=== PATIENT | male | born 1980 | race African-American/Black ===

== ENCOUNTER 2016-11-23 23:16 | Observation (INO) ==
[2016-11-23] MEDS ORDERED: 0.9 % Sodium Chloride 1,000 ML IVC ONE (23:18)
--- NOTE | 2016-11-23 23:34 | Emergency Department Note ---
Disposition Clinical Impression: Alcohol intoxication Qualifiers: Complication of substance-induced condition: with unspecified complication Qualified Code(s): F10.129 - Alcohol abuse with intoxication, unspecified Disposition: Admitted As Inpatient Condition: Fair Time of Disposition: 02:58 Alcohol HPI - General Chief Complaint: ED Alcohol Abuse Stated Complaint: intoxication Time Seen by Provider: 11/23/16 23:17 Source: patient, EMS Limitations: no limitations Nursing Notes Reviewed: Yes Vital Signs Reviewed: Yes - History of Present Illness HPI Narrative: 36-year-old male arrives by squad with reported alcohol intoxication. Squad reports patient was found intoxicated on [address] they were able to talk patient at the time. They noticed an abrasion on his head. They have discussed patient with a bystander who is moderately patient, and the bystander had reported patient does not drink, but does not take drugs. - Related Data Allergies Allergy/AdvReac Type Severity Reaction Status Date / Time Unable to Assess Allergy Unverified 11/23/16 23:36 Limitations: ROS unobtainable due to patients medical condition Past Medical History - Past Medical History Medical history: Reports: other - Social History Smoking Status: Unknown if ever smoked Alcohol use: Reports: heavy, recent Physical Exam - General Limitations: altered mental status General appearance: alert, appears intoxicated - Head Head exam: other (Scalp abrasion) - Eye Eye exam: Present: normal appearance, PERRL, EOMI - ENT ENT exam: normal exam, mucous membranes moist - Neck Neck exam: Present: full ROM - Chest Chest inspection: Present: normal inspection, symmetric chest wall rise - Respiratory Respiratory exam: Present: normal lung sounds bilaterally. Absent: respiratory distress - Cardiovascular Cardiovascular exam: Present: regular rate, normal rhythm - Abdominal Exam Abdominal exam: Present: soft, Non-Tender - Extremities Exam Extremities exam: Present: normal inspection, full ROM, normal capillary refill. Absent: calf tenderness - Back Exam Back exam: Present: normal inspection, full ROM - Skin Skin exam: Present: warm, dry, intact, normal color. Absent: rash, cyanosis, diaphoresis Course Course Narrative: 36-year-old male who arrives via squad with reported alcohol intoxication. History provided by [employer]. She reported to be drinking, was drunk. Not been able to get up. Patient's vitals within normal limits. Patient is not arousable scalp abrasion on left side. Initial workup ordered. Discussed with Dr. Hinojosa, who agreed with CT of head and neck. Vital Signs Temperature 97.9 F 11/23/16 23:17 Pulse Rate 76 11/23/16 23:17 Respiratory Rate 18 11/23/16 23:17 Blood Pressure 108/64 11/23/16 23:17 O2 Sat by Pulse Oximetry 95 11/23/16 23:17 Temperature 97.9 F 11/23/16 23:17 Pulse Rate 76 11/23/16 23:17 Respiratory Rate 18 11/24/16 01:43 Blood Pressure 118/89 11/24/16 01:43 O2 Sat by Pulse Oximetry 95 11/23/16 23:17 Oxygen Delivery Oxygen Delivery Nasal Cannula Alcohol - MDM Narrative Medical decision making narrative: 28-year-old male presents with reported alcohol intoxication. He arrives via squad. He was talking at the scene. No reported involvement of any drug use other than alcohol. No reported injury, however patient did have a scalp abrasion. Workup showed ethanol level 387. CT head and neck negative. Patient has been unarousable to pain.Patient has been managing his own airway , vital stable. Did discuss patient with Dr. Hinojosa who agreed with workup evaluation and for admission. Patient was except for the hospitalists for ethanol intoxication. - Lab Data Lab results reviewed: Yes I reviewed the patient's lab results. Result diagrams: 11/23/16 23:30 11/23/16 23:30 Lab Results 11/23/16 11/23/16 11/23/16 Range/Units 23:30 23:30 23:30 WBC 4.6 (4.3-11.1) K/mcL RBC 4.17 L (4.19-5.50) M/mcL Hgb 13.5 (12.9-16.9) g/dL Hct 40.7 (37.5-50.1) % MCV 97.6 (83.0-100.0) fL MCH 32.4 (28.0-33.3) pg MCHC 33.2 (31.6-35.5) g/dL RDW 15.0 H (11.5-14.5) % Plt Count 255 (140-400) K/mcL MPV 9.1 L (9.4-12.4) fL Immature Gran % 0.2 (0-4) % Seg Neutrophils % 41.5 % Lymphocytes % 45.0 % Monocytes % 12.3 % Eosinophils % 0.6 % Basophils % 0.4 % Neutrophils # 1.9 (1.6-8.9) K/mcL Lymphocytes # 2.1 (0.6-4.6) K/mcL Monocytes # 0.6 (0.0-1.3) K/mcL Eosinophils # 0.0 (0.0-0.6) K/mcL Basophils # 0.0 (0.0-0.2) K/mcL Sodium 144 (136-145) mEq/L Potassium 3.2 L (3.5-4.5) mEq/L Chloride 112 H (98-109) mEq/L Carbon Dioxide 25 (19-29) mEq/L BUN 5 L (8-26) mg/dL Creatinine 0.85 (0.72-1.25) mg/dL Est GFR ( Amer) > 60 (> 60) Est GFR (Non-Af Amer) > 60 (> 60) BUN/Creatinine Ratio 6 (6-26) Glucose 100 H (70-99) mg/dL Calculated Osmolality 295 (280-300) Calcium 8.1 L (8.6-10.8) mg/dL Total Bilirubin 0.3 (0.2-1.2) mg/dL Direct Bilirubin 0.1 (0.0-0.5) mg/dL Indirect Bilirubin 0.2 (0.0-1.2) mg/dL AST 81 H (5-34) Units/L ALT 143 H (0-55) Units/L Alkaline Phosphatase 41 (38-126) Units/L Ammonia 35 (18-72) mcmol/L Troponin I (0-0.03) ng/mL Serum Total Protein 7.0 (6.0-8.3) g/dL Albumin 4.1 (3.5-5.0) g/dL Globulin 2.9 (2.4-3.5) g/dL Albumin/Globulin Ratio 1.4 (1.1-2.2) Urine Color (Yellow) Urine Clarity (Clear) Urine pH (5.0-8.0) pH Units Ur Specific [place] (1.010-1.025) Urine Protein (Neg-Trace) mg/dL Urine Glucose (UA) (Normal) mg/dL Urine Ketones (Negative) mg/dL Urine Blood (Negative) Urine Nitrite (Negative) Urine Bilirubin (Negative) Urine Urobilinogen (Normal) mg/dL Ur Leukocyte Esterase (Negative) Urine Microscopic RBC (0-3) per hpf Urine Microscopic WBC (0-3) per hpf Urine Bacteria (None-Few) per hpf Ur Culture Indicated? (NO) Urine Opiates Screen (Cgzyje=145) ng/mL Ur Barbiturates Screen (Dsqwhb=333) ng/mL Ur Phencyclidine Scrn (Cutoff=25) ng/mL Ur Amphetamines Screen (Qyixfx=9649) ng/mL U Benzodiazepines Scrn (Kqetwb=623) ng/mL Urine Cocaine Screen (Cutoff= 300) ng/mL U Marijuana (THC) Screen (Cutoff = 50) ng/mL Ethyl Alcohol 387 H (0-10) mg/dL 11/23/16 11/23/16 11/23/16 Range/Units 23:30 23:58 23:58 WBC (4.3-11.1) K/mcL RBC (4.19-5.50) M/mcL Hgb (12.9-16.9) g/dL Hct (37.5-50.1) % MCV (83.0-100.0) fL MCH (28.0-33.3) pg MCHC (31.6-35.5) g/dL RDW (11.5-14.5) % Plt Count (140-400) K/mcL MPV (9.4-12.4) fL Immature Gran % (0-4) % Seg Neutrophils % % Lymphocytes % % Monocytes % % Eosinophils % % Basophils % % Neutrophils # (1.6-8.9) K/mcL Lymphocytes # (0.6-4.6) K/mcL Monocytes # (0.0-1.3) K/mcL Eosinophils # (0.0-0.6) K/mcL Basophils # (0.0-0.2) K/mcL Sodium (136-145) mEq/L Potassium (3.5-4.5) mEq/L Chloride (98-109) mEq/L Carbon Dioxide (19-29) mEq/L BUN (8-26) mg/dL Creatinine (0.72-1.25) mg/dL Est GFR ( Amer) (> 60) Est GFR (Non-Af Amer) (> 60) BUN/Creatinine Ratio (6-26) Glucose (70-99) mg/dL Calculated Osmolality (280-300) Calcium (8.6-10.8) mg/dL Total Bilirubin (0.2-1.2) mg/dL Direct Bilirubin (0.0-0.5) mg/dL Indirect Bilirubin (0.0-1.2) mg/dL AST (5-34) Units/L ALT (0-55) Units/L Alkaline Phosphatase (38-126) Units/L Ammonia (18-72) mcmol/L Troponin I 0.01 (0-0.03) ng/mL Serum Total Protein (6.0-8.3) g/dL Albumin (3.5-5.0) g/dL Globulin (2.4-3.5) g/dL Albumin/Globulin Ratio (1.1-2.2) Urine Color Yellow (Yellow) Urine Clarity Clear (Clear) Urine pH 5.0 (5.0-8.0) pH Units Ur Specific [place] 1.010 (1.010-1.025) Urine Protein Negative (Neg-Trace) mg/dL Urine Glucose (UA) Normal (Normal) mg/dL Urine Ketones Negative (Negative) mg/dL Urine Blood Trace-intact H (Negative) Urine Nitrite Negative (Negative) Urine Bilirubin Negative (Negative) Urine Urobilinogen Normal (Normal) mg/dL Ur Leukocyte Esterase Negative (Negative) Urine Microscopic RBC 0-3 (0-3) per hpf Urine Microscopic WBC 0-3 (0-3) per hpf Urine Bacteria Few (None-Few) per hpf Ur Culture Indicated? NO (NO) Urine Opiates Screen Negative (Mwdqpl=701) ng/mL Ur Barbiturates Screen Negative (Rrefmv=509) ng/mL Ur Phencyclidine Scrn Negative (Cutoff=25) ng/mL Ur Amphetamines Screen Negative (Fquxaa=8046) ng/mL U Benzodiazepines Scrn Negative (Xltyxz=805) ng/mL Urine Cocaine Screen Negative (Cutoff= 300) ng/mL U Marijuana (THC) Screen Positive H (Cutoff = 50) ng/mL Ethyl Alcohol (0-10) mg/dL - Radiology Data Radiology results reviewed: Yes I reviewed the patient's radiology results.
[2016-11-23 23:39] LABS: Basophils % 0.4 %; Eosinophils % 0.6 %; Hematocrit 40.7 % (37.5-50.1); Hemoglobin 13.5 g/dL (12.9-16.9); Immature Granulocytes % 0.2 % (0-4); Lymphocytes # 2.1 K/mcL (0.6-4.6); Mean Corpuscular HGB Conc 33.2 g/dL (31.6-35.5); Mean Corpuscular Hemoglobin 32.4 pg (28.0-33.3); Mean Corpuscular Volume 97.6 fL (83.0-100.0); Mean Platelet Volume 9.1 fL (9.4-12.4); Monocytes # 0.6 K/mcL (0.0-1.3); Monocytes % 12.3 %; Neutrophils # 1.9 K/mcL (1.6-8.9); Platelet Count 255 K/mcL (140-400); Red Blood Count 4.17 M/mcL (4.19-5.50); Segmented Neutrophils % 41.5 %
--- NOTE | 2016-11-23 23:46 | Emergency Department Note ---
START Narrative - START START: I examined this patient and my medical decision-making was reviewed with the SPORTS TEAM MANAGER/PA/Advanced Practice Nurse/Resident Physician. I agree with the documented findings, disposition and treatment plan as described except to the extent set forth below. ED attending note: Patient seen with physician anesthesiology physician assistant Wyatt Hand. Please see a copy of his note for details of the H&P, evaluation, management and disposition of this patient. We independently had [id number] contact with the patient Briefly: A 46-year-old male by EMS brought in for "intoxication." Bystander noted that the patient who does have a history of alcohol use and abuse was intoxicated. No other history of drugs per EMS and statedBY bystander. Patient is somnolent but arousable maintaining airway, GCS 14. Patient getting an Accu-Chek, CT scan of the head and neck because was abrasion on the scalp. No other external signs of trauma. Afebrile with stable vitals. Getting IV fluids and screening labs and will be observed. Providing 45 minutes of critical care services for this patient. Disposition pending.
[2016-11-23 23:54] LABS: Alanine Aminotransferase 143 Units/L (0-55); Albumin 4.1 g/dL (3.5-5.0); Albumin/Globulin Ratio 1.4 (1.1-2.2); Alkaline Phosphatase 41 Units/L (38-126); Aspartate Amino Transferase 81 Units/L (5-34); Bilirubin,Direct 0.1 mg/dL (0.0-0.5); Bilirubin,Indirect 0.2 mg/dL (0.0-1.2); Bilirubin,Total 0.3 mg/dL (0.2-1.2); Calcium 8.1 mg/dL (8.6-10.8); Carbon Dioxide 25 mEq/L (19-29); Chloride 112 mEq/L (98-109); Globulin 2.9 g/dL (2.4-3.5); Glucose 100 mg/dL (70-99); Osmolality,Calculated 295 (280-300); Potassium 3.2 mEq/L (3.5-4.5); Sodium 144 mEq/L (136-145); eGFR For African Americans > 60 (> 60); eGFR For Non-African Americans > 60 (> 60)
[2016-11-24 00:12] LABS: BUN/Creatinine Ratio 6 (6-26); Blood Urea Nitrogen 5 mg/dL (8-26)
[2016-11-24 00:23] LABS: Bilirubin,Urine Negative (Negative); Blood,Urine Trace-intact (Negative); Clarity,Urine Clear (Clear); Color,Urine Yellow (Yellow); Glucose,Urine (UA) Normal (Normal); Ketones,Urine Negative (Negative); Leukocyte Esterase,Urine Negative (Negative); Nitrite,Urine Negative (Negative); Protein,Urine Negative (Neg-Trace); Urobilinogen,Urine Normal (Normal)
[2016-11-24 00:26] LABS: Ethanol 387 mg/dL (0-10)
[2016-11-24 00:30] LABS: Amphetamine Screen,Urine Negative ng/mL (Cutoff=1000); Barbiturate Screen,Urine Negative ng/mL (Cutoff=200); Benzodiazepines Screen,Urine Negative ng/mL (Cutoff=200); Cannabinoid Screen,Urine Positive ng/mL (Cutoff = 50); Cocaine Screen,Urine Negative ng/mL (Cutoff= 300); Opiate Screen,Urine Negative ng/mL (Cutoff=300); Phencyclidine Screen,Urine Negative ng/mL (Cutoff=25)
[2016-11-24 00:31] LABS: Bacteria,Urine Few per hpf (None-Few)
[2016-11-24 00:32] LABS: RBC,Urine 0-3 per hpf (0-3); WBC,Urine 0-3 per hpf (0-3)
[2016-11-24] MEDS ORDERED: Nicotine 21 MG PATCH.TD24 TD SCH (05:04)
[2016-11-24] MEDS ORDERED: Naloxone 0.4 MG/ML INJ IVP PRN (05:15)
--- NOTE | 2016-11-24 05:44 | Internal Med History&Physical ---
Date of Encounter: 11/24/16 Time of Encounter: 04:00 Assessment and Plan (1) Alcohol intoxication Current visit: Yes Status: Acute H/o chronic alcohol abuse and intoxication. I have counseled for abstenence. WIll monitor for alcohol withdrawal symptoms - start CIKS protocol Qualifiers: Complication of substance-induced condition: with unspecified complication Qualified Code(s): F10.129 - Alcohol abuse with intoxication, unspecified (2) Suicidal ideation Current visit: Yes Status: Acute Suicide precautions. Psychiatric consultation. (3) Nicotine dependence Current visit: Yes Status: Acute Nicotine patch Qualifiers: Nicotine product type: cigarettes Substance use status: in withdrawal Qualified Code(s): F17.213 - Nicotine dependence, cigarettes, with withdrawal Internal Medicine - H&P: HPI Chief complaint: Alcohol intoxication Admitted From: Emergency Dept Plans for Post Hospital Care: Home History of present illness: Mr. Seth is a 36 year old male, who was apparently to the ER, by squad with reported alcohol intoxication. Squad reported that the patient was found intoxicated on [address] and they noticed an abrasion on his head. In the ER , was not arousable and Workup showed ethanol level 387. CT head and neck negative for acute lesions. Pt is admitted to the hospitalist service for alcohol intoxication. Unable to the medical floor, patient was awake and verbally abusive to staff and combative. He apparently reported to the staff member that he wants to cut his wrist with razor. He reports h/o alcohol abuse for many years. He becomes shaky, when he wakes up in the morning and starts drinking in the morning. He reports that he has been trouble due to alcohol, but did not elaborate. He has history of smoking, and wants to go out to smoke. He reports some pain in the left scalp area. He denies chest pain, shortness of breath, cough, expectoration, fever, chills, nausea, vomiting, abdominal pain , dysuria, hematuria. Past Med Surg Social Fam HX - Past Medical History Medical history: other - Social History Smoking Status: Current every day smoker Smokeless Tobacco Status: No Alcohol use: heavy, recent Drug use: marijuana - Additional Family History Additional family history: Pt is not able to give details Internal Medicine - H&P: Meds Allergies Unable to Assess Allergy (Unverified 11/23/16 23:36) pt intoxicated All Systems PM: A 10-system review of systems was performed and is negative for pertinent findings except as documented above in the HPI. - Constitutional Vitals: Temp Pulse Resp BP Pulse Ox 97.5 F L 77 18 115/78 97 11/24/16 03:53 11/24/16 03:53 11/24/16 03:53 11/24/16 03:53 11/24/16 03:53 Exam: General: Not in acute distress at the time of my evaluation. Combative at times HEENT: Oral mucosa is moist. His upper front teeth are missing. No conjunctival palor or scleral icterus Neck: No obvious neck swellings Lungs: Clear to auscultation Cardiac: Regular rate and rhythm. No significant murmurs Abdomen: Soft, non tender. Bowel sounds present Genitourinary: No singh catheter Neurological: No gross localizing deficits Psych: Pt expressed suicidal thoughts. Agitated Extremities: no significant leg edema Skin: No generalized rash Internal Med - H&P Results - Labs CBC & Chem 7: 11/23/16 23:30 11/23/16 23:30 - Impressions ITS Impressions Chest X-Ray 11/23/16 23:19 IMPRESSION: Improved aeration compared to prior radiograph dated 11/08/2016. Otherwise no acute cardiopulmonary findings. D/ / Greg Dunbar MD / Greg Dunbar MD Interpreting Provider: Greg Dunbar MD Cervical Spine CT 11/24/16 23:28 IMPRESSION: Multilevel degenerative disc disease, without gross fracture. D/ / Jay Das MD / Jay Das MD Interpreting Provider: Jay Das MD Head CT 11/24/16 23:28 IMPRESSION: Left parietal scalp soft tissue swelling. No gross acute intracranial process. D/ / Jay Das MD / Jay Das MD Interpreting Provider: Jay Das MD - VTE Reasons for not Prescribing Prophylaxis: Treatment not Indicated - Low risk for VTE
[2016-11-24] MEDS ORDERED: Haloperidol Lactate 5 MG/ML VIAL IM ONE (06:00)
[2016-11-24] MEDS ORDERED: *HR* LORazepam 2 MG/ML VIAL IVP PRN ×3 (06:18)
[2016-11-24 07:08] LABS: Magnesium 2.3 mg/dL (1.6-2.6)
[2016-11-24 07:39] VITALS: BP 114/63
[2016-11-24] MEDS ORDERED: Vitamin B Complex/Vit C/Vit E 1 EACH TABLET PO SCH (09:00)
[2016-11-24] MEDS ORDERED: Thiamine (B-1) 100 MG TABLET PO SCH (09:00)
[2016-11-24] MEDS ORDERED: Folic Acid 1 MG TABLET PO SCH (09:00)
--- NOTE | 2016-11-24 13:24 | Event Note ---
Date of Encounter: 11/24/16 Time of Encounter: 08:15 Patient seen and examined. On examination, patient asleep supine in bed and snoring. He had just received Haldol and had a combative night. He currently only had one restraint to his left arm during my examination of him. He remained drowsy after the medication, will let him sleep and assess him once he is more alert. Chest x-ray negative. Cervical spine CT negative. Head CT negative. Mild hypokalemia noted. Urinalysis negative. Psychiatry on board, appreciate their recommendations. We will reassess him later today once he is more alert. ITS Impressions Chest X-Ray 11/23/16 23:19 IMPRESSION: Improved aeration compared to prior radiograph dated 11/08/2016. Otherwise no acute cardiopulmonary findings. D/ / Greg Dunbar MD / Greg Dunbar MD Interpreting Provider: Grge Dunbar MD Cervical Spine CT 11/24/16 23:28 IMPRESSION: Multilevel degenerative disc disease, without gross fracture. D/ / Jay Das MD / Jay Das MD Interpreting Provider: Jay Das MD Head CT 11/24/16 23:28 IMPRESSION: Left parietal scalp soft tissue swelling. No gross acute intracranial process. D/ / Jay Das MD / Jay Das MD Interpreting Provider: Jay Das MD
--- NOTE | 2016-11-24 14:32 | Discharge Summary ---
Date of Encounter: 11/24/16 Time of Encounter: 08:15 (and 1400) - Discharge Diagnosis (1) Alcohol intoxication Priority: Primary Status: Resolved Comments: Patient was alert and oriented 3 at time of discharge. He was not suicidal. Qualifiers: Complication of substance-induced condition: with unspecified complication Qualified Code(s): F10.129 - Alcohol abuse with intoxication, unspecified (2) Suicidal ideation Priority: Primary Status: Resolved Comments: As the patient sobered up, he denied suicidal ideation. Cleared by psychiatry. (3) Marijuana abuse Priority: Secondary Status: Chronic (4) Hypokalemia Priority: Primary Status: Acute Comments: mild, supplement given while admitted. followup outpatient (5) Nicotine dependence Priority: Secondary Status: Chronic Qualifiers: Nicotine product type: cigarettes Substance use status: in withdrawal Qualified Code(s): F17.213 - Nicotine dependence, cigarettes, with withdrawal - Discharge Medications Home Medications: No Known Home Drugs 11/24/16 [History] Allergies/Adverse Reactions: Allergies Unable to Assess Allergy (Unverified 11/23/16 23:36) pt intoxicated Date of admission: 11/24/16 01:25 Primary care physician: PCP NO Consults: 11/24/16 03:43 Consult to Stove Mechanic [CONS] Routine Reason for SW Consult: suicidal ideatons 11/24/16 05:30 Consult to Psychiatry [CONS] Routine Consulting Provider: Luis Goel Reason for Consult: Suicidal ideatioon Call Completed: No 11/24/16 06:18 Consult to Stove Mechanic [CONS] Routine Reason for SW Consult: Alcohol intoxication Discharging clinician: Sierra Westbrook Anticipated date of discharge: 11/24/16 - Patient Status Disposition: Home, Self-Care Condition: Fair Functional capacity at discharge: independent ambulation Overall status at discharge: patient is back to baseline - Discharge Instructions Follow Up With: Zeb Parra [Other] Additional Instructions: Follow up with Zeb Parra when available - Diet and Activity Activity: increase activity as tolerated Diet: regular diet Hospital course: Mr. Seth is a 36 year old male with past medical history of marijuana abuse, tobacco abuse, heavy alcohol abuse. Patient was brought to the emergency department via EMS for alcohol intoxication. Patient was found intoxicated on [address] and was also noted to have an abrasion on his head at that time. Chest x-ray unremarkable. Cervical spine CT negative. Head CT negative for acute processes other than soft tissue swelling on his scalp. Urinalysis negative for signs of infection. Tox screen positive for marijuana and alcohol. He was admitted to the hospitalist service for further evaluation and management. Shortly after admission, the patient became verbally and physically abusive with staff and he required 4 point restraints and Haldol for staff and patient safety. A constant attendant was placed at the bedside and he was placed on suicidal precautions as when the patient was screaming at staff , he was also stating that he wanted to slit his wrists and making other suicidal ideation remarks. After receiving the Haldol, patient then slept for several hours. Upon wakening, patient was no longer intoxicated and was alert and oriented 3. He stated he did not remember anything from the night before. He stated that he did not have any suicidal ideations. He stated that he was going to "attempt to try to quit" drinking alcohol. He was seen and evaluated by psychiatry who cleared him for outpatient follow-up. He will be referred to Zeb Parra upon discharge. He was also given references per psychiatric social worker. He was also able to tolerate a regular diet prior to discharge. He had no signs of withdrawal during this admission. He was discharged home in stable condition with close outpatient follow-up recommended. Of note, he states that he is living in a trailer and states he feels safe in his current environment. ITS Impressions Chest X-Ray 11/23/16 23:19 IMPRESSION: Improved aeration compared to prior radiograph dated 11/08/2016. Otherwise no acute cardiopulmonary findings. D/ / Greg Dunbar MD / Greg Dunbar MD Interpreting Provider: Greg Dunbar MD Cervical Spine CT 11/24/16 23:28 IMPRESSION: Multilevel degenerative disc disease, without gross fracture. D/ / Jay Das MD / Jay Das MD Interpreting Provider: Jay Das MD Head CT 11/24/16 23:28 IMPRESSION: Left parietal scalp soft tissue swelling. No gross acute intracranial process. D/ / Jay Das MD / Jay Das MD Interpreting Provider: Jay Das MD - Time Spent with Patient Total time spent providing and/or coordinating discharge services: - Constitutional Vitals: Temp Pulse Resp BP Pulse Ox 98.6 F 79 14 114/63 96 11/24/16 07:38 11/24/16 07:38 11/24/16 07:38 11/24/16 07:38 11/24/16 07:38 General appearance: Present: A&O X 3, pleasant, no acute distress, answers questions appropriately - Head Head exam: Present: atraumatic, normocephalic - Eye Eye exam: Present: PERRL, conjuntiva pink, sclera anicteric Pupils: Present: PERRL - Neck Neck exam general surgery: Present: supple, trachea midline. Absent: lymphadenopathy - Respiratory Respiratory exam: Present: CTAB. Absent: accessory muscle use, rales, respiratory distress, rhonchi, wheezes - Cardiovascular Cardiovascular exam: Present: RRR, +S1, +S2. Absent: diastolic murmur, gallop, rubs, systolic murmur - GI/Abdominal GI/Abdominal exam: Present: normal bowel sounds, soft, no peritoneal signs. Absent: distended, tenderness - Extremities Exam Extremities exam: Present: warm, radial pulses palpable and symetrical. Absent : calf tenderness, cyanotic, pedal edema - Neurological Exam Neurological exam: Present: alert, CN II-XII intact, normal gait, oriented X3, no focal deficits, strengths equal and symetr throughout. Absent: pronater drift, facial droop, speech deficit - Psychiatric Psychiatric exam: Present: flat affect. Absent: suicidal ideation - Skin Skin exam: Present: dry, intact, normal color, warm - VTE Reasons for not Prescribing Prophylaxis: Treatment not Indicated - Low risk for VTE
--- NOTE | 2016-11-24 15:03 | Consult Note ---
Date of Encounter: 11/24/16 Time of Encounter: 14:15 Assessment & Recommendation (1) Alcohol intoxication Current visit: Yes Status: Resolved Assessment & Recommendation: 1. From psychiatric standpoint patient is cleared for discharge. He is not suicidal. 2. Patient will be given referral information for outpatient mental health and substance abuse resources and he is interested. Thank you for consultation. Qualifiers: Complication of substance-induced condition: with unspecified complication Qualified Code(s): F10.129 - Alcohol abuse with intoxication, unspecified (2) Suicidal ideation Current visit: Yes Status: Resolved History of Present Illness Patient: new to practice Requesting Physician: Sierra Nixon Reason for consult: Alcohol intoxication and suicidal ideation History of present illness: Mr. Seth is a 36 year old male admitted to the hospital for evaluation and treatment of intoxication with alcohol and change in mental status also patient made suicidal remarks." alcohol Level on admission was 387, UDS was positive for THC. Psychiatric consultation was requested to evaluate suicidal ideation. Patient has long history of alcohol dependence and also substance abuse and dependence who also had history of being in treatment for drug rehabilitation inpatient and outpatient and the longest sobriety was 6 months. On interview patient was alert and oriented, he was cooperative he was not agitated ,nursing staff report that his vital signs were stabilizing without any evidence of withdrawal, he denied any history of DTs. He denies suicidal ideation and was interested in outpatient services for substance abuse and mental health. Referral information will be given to him on discharge. He was alert and oriented, there was no evidence of any mood disorder or psychosis. CC: Sierra Nixon Past Med Surg Social Fam HX - Past Medical History Medical history: other - Social History Smoking Status: Current every day smoker Smokeless Tobacco Status: No Alcohol use: heavy, recent Drug use: marijuana Medications & Allergies No Known Home Drugs 11/24/16 [History] Allergies Unable to Assess Allergy (Unverified 11/23/16 23:36) pt intoxicated Mental Status Exam Patient orientation: Yes Person, Yes Time, Yes Place Level of alertness: Alert Patient appearance: Appropriate, Unkempt, Disheveled Behavior: calm, cooperative Psychomotor activity: Normal Eye contact: Maintains Eye Contact Mood description: Euthymic/stable Affect description: congruent with mood, full range Speech pattern: Normal rate, Normal rhythm, Normal tone Speech volume: Normal Thought process: Linear, Goal Oriented Thought content: No Suicidal ideation, No Homicidal ideation, No Overt delusions Perceptual disturbances: No Auditory hallucinations, No Visual hallucinations Attention span: Capable of Focused Attention Memory description: Grossly Intact Patient reliability: Reliable Historian Intelligence estimate: Average Judgment: Limited Insight: Partial Results - Vital Signs Vital signs: Temp Pulse Resp BP Pulse Ox 98.6 F 79 14 114/63 96 11/24/16 07:38 11/24/16 07:38 11/24/16 07:38 11/24/16 07:38 11/24/16 07:38 - Labs Labs: Laboratory Last Values WBC 4.6 K/mcL (4.3-11.1) 11/23/16 23:30 RBC 4.17 M/mcL (4.19-5.50) L 11/23/16 23:30 Hgb 13.5 g/dL (12.9-16.9) 11/23/16 23:30 Hct 40.7 % (37.5-50.1) 11/23/16 23:30 MCV 97.6 fL (83.0-100.0) 11/23/16 23:30 MCH 32.4 pg (28.0-33.3) 11/23/16 23:30 MCHC 33.2 g/dL (31.6-35.5) 11/23/16 23:30 RDW 15.0 % (11.5-14.5) H 11/23/16 23:30 Plt Count 255 K/mcL (140-400) 11/23/16 23:30 MPV 9.1 fL (9.4-12.4) L 11/23/16 23:30 Immature Gran % 0.2 % (0-4) 11/23/16 23:30 Seg Neutrophils % 41.5 % 11/23/16 23:30 Lymphocytes % 45.0 % 11/23/16 23:30 Monocytes % 12.3 % 11/23/16 23:30 Eosinophils % 0.6 % 11/23/16 23:30 Basophils % 0.4 % 11/23/16 23:30 Neutrophils # 1.9 K/mcL (1.6-8.9) 11/23/16 23:30 Lymphocytes # 2.1 K/mcL (0.6-4.6) 11/23/16 23:30 Monocytes # 0.6 K/mcL (0.0-1.3) 11/23/16 23:30 Eosinophils # 0.0 K/mcL (0.0-0.6) 11/23/16 23:30 Basophils # 0.0 K/mcL (0.0-0.2) 11/23/16 23:30 Sodium 144 mEq/L (136-145) 11/23/16 23:30 Potassium 3.2 mEq/L (3.5-4.5) L 11/23/16 23:30 Chloride 112 mEq/L (98-109) H 11/23/16 23:30 Carbon Dioxide 25 mEq/L (19-29) 11/23/16 23:30 BUN 5 mg/dL (8-26) L 11/23/16 23:30 Creatinine 0.85 mg/dL (0.72-1.25) 11/23/16 23:30 Est GFR ( Amer) > 60 (> 60) 11/23/16 23:30 Est GFR (Non-Af Amer) > 60 (> 60) 11/23/16 23:30 BUN/Creatinine Ratio 6 (6-26) 11/23/16 23:30 Glucose 100 mg/dL (70-99) H 11/23/16 23:30 POC Glucose 100 (58-89) H 11/24/16 12:04 Calculated Osmolality 295 (280-300) 11/23/16 23:30 Calcium 8.1 mg/dL (8.6-10.8) L 11/23/16 23:30 Magnesium 2.3 mg/dL (1.6-2.6) 11/23/16 23:30 Total Bilirubin 0.3 mg/dL (0.2-1.2) 11/23/16 23:30 Direct Bilirubin 0.1 mg/dL (0.0-0.5) 11/23/16 23:30 Indirect Bilirubin 0.2 mg/dL (0.0-1.2) 11/23/16 23:30 AST 81 Units/L (5-34) H 11/23/16 23:30 ALT 143 Units/L (0-55) H 11/23/16 23:30 Alkaline Phosphatase 41 Units/L (38-126) 11/23/16 23:30 Ammonia 35 mcmol/L (18-72) 11/23/16 23:30 Troponin I 0.01 ng/mL (0-0.03) 11/23/16 23:30 Serum Total Protein 7.0 g/dL (6.0-8.3) 11/23/16 23:30 Albumin 4.1 g/dL (3.5-5.0) 11/23/16 23:30 Globulin 2.9 g/dL (2.4-3.5) 11/23/16 23:30 Albumin/Globulin Ratio 1.4 (1.1-2.2) 11/23/16 23:30 Urine Color Yellow (Yellow) 11/23/16 23:58 Urine Clarity Clear (Clear) 11/23/16 23:58 Urine pH 5.0 pH Units (5.0-8.0) 11/23/16 23:58 Ur Specific [place] 1.010 (1.010-1.025) 11/23/16 23:58 Urine Protein Negative mg/dL (Neg-Trace) 11/23/16 23:58 Urine Glucose (UA) Normal mg/dL (Normal) 11/23/16 23:58 Urine Ketones Negative mg/dL (Negative) 11/23/16 23:58 Urine Blood Trace-intact (Negative) H 11/23/16 23:58 Urine Nitrite Negative (Negative) 11/23/16 23:58 Urine Bilirubin Negative (Negative) 11/23/16 23:58 Urine Urobilinogen Normal mg/dL (Normal) 11/23/16 23:58 Ur Leukocyte Esterase Negative (Negative) 11/23/16 23:58 Urine Microscopic RBC 0-3 per hpf (0-3) 11/23/16 23:58 Urine Microscopic WBC 0-3 per hpf (0-3) 11/23/16 23:58 Urine Bacteria Few per hpf (None-Few) 11/23/16 23:58 Ur Culture Indicated? NO (NO) 11/23/16 23:58 Urine Opiates Screen Negative ng/mL (Grrrpe=161) 11/23/16 23:58 Ur Barbiturates Screen Negative ng/mL (Zlbgbf=934) 11/23/16 23:58 Ur Phencyclidine Scrn Negative ng/mL (Cutoff=25) 11/23/16 23:58 Ur Amphetamines Screen Negative ng/mL (Vbynof=0297) 11/23/16 23:58 U Benzodiazepines Scrn Negative ng/mL (Fucmaj=381) 11/23/16 23:58 Urine Cocaine Screen Negative ng/mL (Cutoff= 300) 11/23/16 23:58 U Marijuana (THC) Screen Positive ng/mL (Cutoff = 50) H 11/23/16 23:58 Ethyl Alcohol 387 mg/dL (0-10) H 11/23/16 23:30 - Impressions Impressions Cervical Spine CT 11/24/16 23:28 IMPRESSION: Multilevel degenerative disc disease, without gross fracture. D/ / Jay Das MD / Jay Das MD Interpreting Provider: Jay Das MD Head CT 11/24/16 23:28 IMPRESSION: Left parietal scalp soft tissue swelling. No gross acute intracranial process. D/ / Jay Das MD / Jay Das MD Interpreting Provider: Jay Das MD Consult Discharge Plan - Plan Instructions: Alcohol Intoxication (DC), Abuse of Alcohol (DC) Additional Instructions: Follow up with Zeb Parra when available Referrals: Zeb Parra [Other]
== END 2016-11-24 15:03 | disposition home or self-care (01) ==
LOC: EMEROO 23:16 → 3BNU 23:16
PROVIDERS: ADMIT Nurse Practitioner Family; ATTEND Nurse Practitioner Family